=== PATIENT | male | born 1985 | race Two or more races ===

== ENCOUNTER 2023-04-10 17:53 | Emergency (ER) | payer MEDICAID ==
[~2023-04-10] VITALS: Ht 172.7 cm; Wt 61.3 kg
[2023-04-10 18:22] VITALS: BP 105/58; PULSE 63; RESP 18; TEMP 97.8; O2SAT 100
[2023-04-10] MEDS ORDERED: CEPH500C PO (19:16)
== END 2023-04-10 19:37 | disposition home or self-care (01) ==
LOC: ER 17:53
DX: H60.12 Cellulitis of left external ear (principal); H61.23 Impacted cerumen, bilateral; F17.210 Nicotine dependence, cigarettes, uncomplicated